=== PATIENT | female | born 1950 | race Caucasian/White ===

== ENCOUNTER 2018-09-26 12:22 | Inpatient (IN) | payer MEDICARE, MEDICAID ==
[~2018-09-26] VITALS: Ht 165.1 cm; Wt 61.2 kg
--- NOTE | 2018-09-26 12:40 | NUR ---
PT A/OX3, PRESENTS TO THE ER W/ A FRIEND. PER FRIEND'S REPORT, PT WAS JUST SEEN AT A DOCTOR'S OFFICE AND DIAGNOSED W/ UTI AND WAS TOLD THAT SHE NEEDED TO BE ADMITTED TO A HOSPITAL. PT IS HYPERTENSIVE, ER MD AWARE. PT DENIES ANY ACUTE DISTRESS AT THIS TIME, DENIES URINARY UGENCY/FREQUENCY, BURNING SENSATION WHEN URINATING. ER MD AT BEDSIDE FOR MSE.
[2018-09-26] MEDS ORDERED: IV NORMAL SALINE 500 ML BAG IV ONE (12:45)
--- NOTE | 2018-09-26 12:54 | NUR ---
PT TAKEN TO RADIOLOGY FOR CT SCAN.
[2018-09-26 13:00] LABS: BASOPHILS # (AUTO) 0.1 K/uL (0.0-8.0); BASOPHILS % (AUTO) 0.8 % (0.0-2.0); EOSINOPHILS # (AUTO) 0.1 K/uL (0.0-0.7); EOSINOPHILS % (AUTO) 1.1 % (0.0-7.0); HEMATOCRIT 47.4 % (31.2-41.9); HEMOGLOBIN 15.3 g/dL (10.9-14.3); LYMPHOCYTES # (AUTO) 1.6 K/uL (20.0-40.0); MEAN CORPUSCULAR HEMOGLOBIN 27.7 uug (24.7-32.8); MEAN CORPUSCULAR HGB CONC 32 g/dL (32.3-35.6); MEAN CORPUSCULAR VOLUME 86.1 fL (75.5-95.3); MONOCYTES # (AUTO) 0.5 K/uL (2.0-10.0); MONOCYTES % (AUTO) 8.1 % (0.0-11.0); NEUTROPHILS # (AUTO) 4.3 K/uL (1.8-8.9); PLATELET COUNT (AUTO) 310 K/uL (179-408); WHITE BLOOD COUNT (AUTO) 6.5 K/uL (3.8-11.8)
--- NOTE | 2018-09-26 13:00 | NUR ---
PT BACK IN ER FROM RADIOLOGY.
[2018-09-26 13:07] LABS: CARBON DIOXIDE 28 mmol/L (21-32); CHLORIDE 101 mmol/L (98-107); CREATININE 1.2 mg/dL (0.6-1.3); GLUCOSE 125 mg/dL (74-106); POTASSIUM 3.4 mmol/L (3.5-5.1); UREA NITROGEN, BLOOD 22 mg/dL (7-18)
[2018-09-26 13:13] LABS: ALANINE AMINOTRANSFERASE 26 U/L (14-59); ALKALINE PHOSPHATASE 162 U/L (50-136); ASPARTATE AMINOTRANSFERASE 26 U/L (15-37); BILIRUBIN,DIRECT 0.1 mg/dL (0.0-0.2); BILIRUBIN,TOTAL 0.7 mg/dL (0.2-1.0); ETHANOL < 3 MG/DL (0-0); TOTAL PROTEIN, SERUM 8.8 g/dL (6.4-8.2)
[2018-09-26 13:14] LABS: ACETAMINOPHEN < 2.0 ug/mL (10-30)
--- NOTE | 2018-09-26 13:15 | NUR ---
ADY speaking with Dr. Granados, [facility]
[2018-09-26] MEDS ORDERED: LEVO25TA9 PO (13:21)
[2018-09-26] MEDS ORDERED: DONE10TA44 PO (13:21)
[2018-09-26] MEDS ORDERED: NAPR-1126 PO (13:21)
[2018-09-26] MEDS ORDERED: ALPR2TAB7 PO (13:21)
[2018-09-26] MEDS ORDERED: BUPR200T PO (13:21)
[2018-09-26] MEDS ORDERED: QUET100T PO (13:21)
[2018-09-26] MEDS ORDERED: FLUO40CA49 PO (13:21)
[2018-09-26] MEDS ORDERED: SUMA100T16 PO (13:21)
[2018-09-26] MEDS ORDERED: METO-357 PO (13:21)
[2018-09-26] MEDS ORDERED: LOSA1TAB36 PO (13:21)
[2018-09-26] MEDS ORDERED: MEMA10TA PO (13:21)
[2018-09-26 13:27] LABS: THYROID STIMULATING HORMONE 0.893 mIU/mL (0.358-3.740)
--- NOTE | 2018-09-26 13:43 | NUR ---
ADMITTING REPORT GIVEN TO ANGY SERNA.
--- NOTE | 2018-09-26 13:48 | NUR ---
Pt. admitted to TELE 209, under care of Dr. CARDOZA. Belongs List completed
[2018-09-26 14:10] VITALS: BP 149/67
--- NOTE | 2018-09-26 15:11 | NUR ---
Patient was transferred to telemetry, patient was received at 1410. Assessment completed.
[2018-09-26 15:16] VITALS: BP 149/72
[2018-09-26] MEDS ORDERED: ZOSYN PER PHARMACY IV PRN (16:30)
[2018-09-26] MEDS ORDERED: HOME MED MISCELLANEOUS PO PRN (17:15)
[2018-09-26] MEDS ORDERED: SUMATRIPTAN SUCCINATE 50 MG TABLET PO PRN (17:15)
[2018-09-26] MEDS: IV NS 1000 ML 1,000 ML IV PRN (17:39)
[2018-09-26] MEDS ORDERED: NAPROXEN 250 MG TABLET PO PRN (17:45)
[2018-09-26] MEDS: PIPERACILLIN/TAZOBACTAM/D5W 3.375 G in PREMIXED 1 EACH IV SCH (17:47)
--- NOTE | 2018-09-26 18:17 | NUR ---
Received patient today as an admit to telemetry. Patient is alert and oriented x3. Patient is slightly confused and has been oriented. Patient vital signs are within normal limits. Patient denies any pain of distress at this time. Patient is able to verbalize needs. Needs have been met. Patient is compliantwith medication administration and medical regimen. Patient was able to tolerate food well and denies any nausea or pain. Will continue to monitor.
--- NOTE | 2018-09-26 19:30 | NUR ---
Received patient lying in bed. Awake and alert. In no acute distress. No complaints of pain or SOB. Antibiotic is infusing on the right upper arm. Safety measures initiated. Bed is low and locked, call light within reach. Will continue to monitor.
[2018-09-26 20:15] VITALS: BP 136/67
[2018-09-26] MEDS: QUETIAPINE FUMARATE 100 MG TABLET PO SCH (20:30)
[2018-09-26] MEDS: MEMANTINE HCL 10 MG TABLET PO SCH (20:30)
[2018-09-26] MEDS: ALPRAZOLAM 0.5 MG TABLET PO SCH (20:30)
[2018-09-27] MEDS: PIPERACILLIN/TAZOBACTAM/D5W 3.375 G in PREMIXED 1 EACH IV SCH ×3 (01:04→16:59)
[2018-09-27 01:10] VITALS: BP 101/57
[2018-09-27 05:55] VITALS: BP 95/50
[2018-09-27] MEDS: LEVOTHYROXINE SODIUM 25 MCG TABLET PO SCH (06:20)
[2018-09-27 06:27] LABS: BASOPHILS # (AUTO) 0.1 K/uL (0.0-8.0); BASOPHILS % (AUTO) 1.1 % (0.0-2.0); EOSINOPHILS # (AUTO) 0.1 K/uL (0.0-0.7); EOSINOPHILS % (AUTO) 2.2 % (0.0-7.0); HEMOGLOBIN 12.5 g/dL (10.9-14.3); LYMPHOCYTES # (AUTO) 1.7 K/uL (20.0-40.0); MEAN CORPUSCULAR HEMOGLOBIN 27.2 uug (24.7-32.8); MEAN CORPUSCULAR HGB CONC 31 g/dL (32.3-35.6); MEAN CORPUSCULAR VOLUME 86.9 fL (75.5-95.3); MONOCYTES # (AUTO) 0.6 K/uL (2.0-10.0); MONOCYTES % (AUTO) 9.1 % (0.0-11.0); NEUTROPHILS # (AUTO) 3.6 K/uL (1.8-8.9); NEUTROPHILS % (AUTO) 59.6 % (38.5-71.5); PLATELET COUNT (AUTO) 224 K/uL (179-408); RED BLOOD CELL COUNT(AUTO) 4.61 MIL/uL (3.63-4.92)
--- NOTE | 2018-09-27 06:38 | NUR ---
PATIENT SLEPT WELL THROUGHOUT SHIFT. HAD NO SIGNS OF ACUTE DISTRESS. HAD NO COMPLAINTS OF PAIN OR SOB. ALL MEDICATION GIVEN ORDERED.SAFETY MEASURES GIVEN. BP AT 0400 WAS 95/50, RECHECKED AND WAS 98/55. ASSESSED PATIENT AND STATED THAT SHE HAD NO FEELINGS OF DIZZINESS, LIGHTHEADEDNESS, OR BLURRED VISION. WILL CONTINUE TO MONITOR.
[2018-09-27 06:41] LABS: CREATININE 1.2 mg/dL (0.6-1.3); POTASSIUM 3.8 mmol/L (3.5-5.1)
--- NOTE | 2018-09-27 07:05 | NUR ---
received report from fractionation supervisor nurse, patient in bed asleep, no distress noted at this time, bed in low position, side rails up x2. Bed alarm on.
[2018-09-27 07:30] LABS: *BILIRUBIN,URIN NEGATIVE (NEGATIVE); *BLOOD, URINE 3+ (NEGATIVE); *CLARITY,URINE SLIGHTLY CLOUDY (CLEAR); *COLOR,URINE YELLOW (YELLOW); *KETONES,URINE TRACE (NEGATIVE); *UROBILINOGEN,URINE 0.2 E.U./dl (NORMAL); LEUKOCYTE ESTERASE ,URINE 3+ (NEGATIVE); NITRITE, URINE POSITIVE (NEGATIVE); UGLUCOSE NEGATIVE (NEGATIVE)
[2018-09-27 07:41] LABS: *AMPHETAMINE, URINE NEGATIVE (NEGATIVE); *BARBITURATE, URINE NEGATIVE (NEGATIVE); *CANNABINOID, URINE NEGATIVE (NEGATIVE); *COCCAINE, URINE NEGATIVE (NEGATIVE); *OPIATE, URINE NEGATIVE (NEGATIVE); *PHENCYCLIDINE SCREEN,URINE NEGATIVE (NEGATIVE)
[2018-09-27] MEDS: DONEPEZIL 10 MG TABLET PO SCH (08:30)
[2018-09-27] MEDS: MEMANTINE HCL 10 MG TABLET PO SCH ×2 (08:30→20:26)
[2018-09-27] MEDS: buPROPion SR 100 MG TABLET.SA PO SCH (08:30)
[2018-09-27] MEDS: FLUOXETINE HCL 20 MG CAPSULE PO SCH (08:30)
[2018-09-27 08:34] LABS: BACTERIA,URINE MANY /HPF (NONE SEEN); RBC,URINE 20-50 /HPF (0-3); SQUAMOUS EPITHELIAL CELL,UR MANY /HPF (NONE SEEN); WBC,URINE 20-50 /HPF (0-3)
[2018-09-27] MEDS: LOSARTAN POTASSIUM 50 MG TABLET PO SCH (08:38)
[2018-09-27] MEDS: METOPROLOL SUCCINATE XL 50 MG TAB.SR.24H PO SCH (08:39)
[2018-09-27] MEDS ORDERED: HOME MED MISCELLANEOUS PO SCH (09:00)
[2018-09-27] MEDS ORDERED: HYDROCHLOROTHIAZIDE 12.5 MG CAPSULE PO SCH (09:00)
[2018-09-27] MEDS: IV NS 1000 ML 1,000 ML IV PRN (10:59)
[2018-09-27 11:04] VITALS: BP 99/46
[2018-09-27 15:17] VITALS: BP 121/71
--- NOTE | 2018-09-27 19:20 | NUR ---
Received patient awake in bed, not in any form of distress. With ongoing IVF, infusing well. Alert and oriented x 4, ambulates to the bathroom. Bed kept in low position, locked, side rails up x 2, call light within reach. Will ensure safety and comfort.
[2018-09-27 20:20] VITALS: BP 114/55
[2018-09-27] MEDS: QUETIAPINE FUMARATE 100 MG TABLET PO SCH (20:26)
[2018-09-27] MEDS: ALPRAZOLAM 0.5 MG TABLET PO SCH (20:26)
[2018-09-28] MEDS: IV NS 1000 ML 1,000 ML IV PRN ×2 (00:09→22:28)
[2018-09-28] MEDS: PIPERACILLIN/TAZOBACTAM/D5W 3.375 G in PREMIXED 1 EACH IV SCH ×3 (00:40→17:17)
[2018-09-28 00:44] VITALS: BP 101/54
[2018-09-28 06:06] VITALS: BP 91/45
[2018-09-28] MEDS: LEVOTHYROXINE SODIUM 25 MCG TABLET PO SCH (06:27)
--- NOTE | 2018-09-28 06:30 | NUR ---
Patient slept well throughout the night. No untoward events noted. With ongoing IVF, infusing well. Alert and oriented x 4, ambulates to the bathroom.Ensured safety and comfort. Attended all needs. No complaints made.
--- NOTE | 2018-09-28 07:05 | NUR ---
Received report from production shift supervisor, and patient in bed with no SOB noted at this time, no c/o pain at this time. Bed on low position and two side rails up. Will continue to monitor.
[2018-09-28] MEDS: METOPROLOL SUCCINATE XL 50 MG TAB.SR.24H PO SCH (09:00)
[2018-09-28] MEDS: LOSARTAN POTASSIUM 50 MG TABLET PO SCH (09:00)
[2018-09-28] MEDS: MEMANTINE HCL 10 MG TABLET PO SCH ×2 (09:08→20:39)
[2018-09-28] MEDS: DONEPEZIL 10 MG TABLET PO SCH (09:08)
[2018-09-28] MEDS: FLUOXETINE HCL 20 MG CAPSULE PO SCH (09:09)
[2018-09-28] MEDS: buPROPion SR 100 MG TABLET.SA PO SCH (09:09)
[2018-09-28 11:46] VITALS: BP 113/66
[2018-09-28 15:28] VITALS: BP 113/55
--- NOTE | 2018-09-28 18:56 | NUR ---
patient in bed in low position with side rails up in sitting position. Bed alarms on, no SOB noted, no c/o pain at this time. vital are WNL. patient is afebrile.
--- NOTE | 2018-09-28 19:30 | NUR ---
RECEIVED PATIENT LYING IN BED AWAKE AND ALERT. NO SIGNS OF ACUTE DISTRESS. NO COMPLAINTS OF PAIN OR SOB. IVF RUNNING ON THE LEFT HAND. SAFETY MEASURES INITIATED. BED IS LOW AND LOCKED, CALL LIGHT WITHIN REACH. WILL CONTINUE TO MONITOR.
[2018-09-28 20:16] VITALS: BP 135/68
[2018-09-28] MEDS: QUETIAPINE FUMARATE 100 MG TABLET PO SCH (20:39)
[2018-09-28] MEDS: ALPRAZOLAM 0.5 MG TABLET PO SCH (20:39)
[2018-09-29 00:47] VITALS: BP 118/58
[2018-09-29] MEDS: PIPERACILLIN/TAZOBACTAM/D5W 3.375 G in PREMIXED 1 EACH IV SCH ×2 (01:00→09:03)
[2018-09-29 05:57] VITALS: BP 115/63
[2018-09-29] MEDS: LEVOTHYROXINE SODIUM 25 MCG TABLET PO SCH (06:18)
--- NOTE | 2018-09-29 06:23 | NUR ---
PATIENT SLEPT MOST OF SHIFT. NO SIGNS OF ACUTE DISTRESS. NO COMPLAINTS OF PAIN OR SOB. ALL MEDICATIONS GIVEN ORDERED. IVF RUNNING ON THE LEFT FOREARM. SAFETY MEASURES GIVEN.
--- NOTE | 2018-09-29 07:20 | NUR ---
RECEIVED PATIENT IN BED AWAKE ALERT AND ORIENTED WITH NO SOB NOTED AND NO C/O PAIN AT THIS TIME. BED IN LOW POSITION WITH 2 SIDE RAILS UP AND BED ALARM ON. IV ON THE LEFT ARM PATENT.
[2018-09-29 08:26] VITALS: BP 145/70
[2018-09-29] MEDS: DONEPEZIL 10 MG TABLET PO SCH (09:04)
[2018-09-29] MEDS: FLUOXETINE HCL 20 MG CAPSULE PO SCH (09:05)
[2018-09-29] MEDS: buPROPion SR 100 MG TABLET.SA PO SCH (09:05)
[2018-09-29] MEDS: METOPROLOL SUCCINATE XL 50 MG TAB.SR.24H PO SCH (09:06)
[2018-09-29] MEDS: MEMANTINE HCL 10 MG TABLET PO SCH (09:07)
[2018-09-29] MEDS: LOSARTAN POTASSIUM 50 MG TABLET PO SCH (09:07)
[2018-09-29] MEDS ORDERED: NITR100C11 PO (10:53)
[2018-09-29 11:33] VITALS: BP 149/76
--- NOTE | 2018-09-29 13:30 | NUR ---
Discharge patient to home with home health arranged with [facility] by Najma HENDERSON inventory planner, discharge and prescription given to patient and verbalized understanding. Accompanied with Dr. Harris, friend, via wheelchair. Patient in fair condition , no sob noted and no acute distress note. belonging accounted for. Question and concerns addressed.
== END 2018-09-29 13:45 | disposition home health service (06) | DRG 689 ==
LOC: ER 12:22 → TELE 14:03 → MED 09-29 11:36
PROVIDERS: ADMIT Internal Medicine Nephrology; ATTEND Internal Medicine Nephrology
DX: N39.0 Urinary tract infection, site not specified (principal); G92 Toxic encephalopathy; E86.0 Dehydration; E87.6 Hypokalemia; T50.2X5A Adverse effect of carbonic-anhydrase inhibitors, benzothiadiazides and other diuretics, initial encounter; Y92.039 Unspecified place in apartment as the place of occurrence of the external cause; G89.4 Chronic pain syndrome; E03.9 Hypothyroidism, unspecified; Z79.890 Hormone replacement therapy; F03.90 Unspecified dementia, unspecified severity, without behavioral disturbance, psychotic disturbance, mood disturbance, and anxiety; G43.909 Migraine, unspecified, not intractable, without status migrainosus; F41.9 Anxiety disorder, unspecified; F32.9 Major depressive disorder, single episode, unspecified; I10 Essential (primary) hypertension
CPT/HCPCS: 36415; 70030-TC; 70450; 71045; 80307; 84443; 85025; 85730; 87086; 93005; A4663; G0378; G0480; G0480-TC; J2543; J7030; J7040